=== PATIENT | female | born 1975 | race Caucasian/White ===

== ENCOUNTER 2020-10-16 08:37 | Outpatient (CLI) | payer MEDICARE, MEDICAID ==
[~2020-10-16] VITALS: Ht 170.2 cm; Wt 85.7 kg
[2020-10-16] MEDS ORDERED: albuterol 2.5 MG/3 ML nebule NEB ONE (09:25)
== END 2020-10-16 23:59 | disposition home or self-care (01) ==
LOC: RT 08:37
PROVIDERS: ATTEND Family Medicine
DX: R94.2 Abnormal results of pulmonary function studies (principal); F17.210 Nicotine dependence, cigarettes, uncomplicated
CPT/HCPCS: 94060; 94760

== ENCOUNTER 2025-10-10 13:35 | Outpatient (CLI) | payer MEDICARE, MEDICAID ==
--- NOTE | 2025-10-10 14:35 | RADIOLOGY REPORT ---
CT chest low-dose History: SCREEN FOR MALIGNANT NEOPLASM OF RESPIRATORY ORGANS TECHNIQUE: Images were obtained on the Siemens Sensation-16 CT Scanner then reformatted in coronal plane. FINDINGS:Lung olivas clear Heart and great vessels unremarkable. No enlargement of hilar or mediastinal lymph nodes. Mild degenerative changes in the thoracic spine. Images through upper abdomen unremarkable.. IMPRESSION: 1. No evidence of malignancy. No acute cardiopulmonary pathology Computed Tomographic Radiation Dosimetry Report: Total CTDI vol = 3.7 mGy Total DLP = 142 mGy-cm All CT scans at this medical facility are performed using dose modulation techniques as appropriate to a performed exam including the following: Automated exposure control was utilized; adjustment of the MA and/or KvP according to patient size; and use of iterative reconstruction technique.
== END 2025-10-10 23:59 | disposition home or self-care (01) ==
LOC: RAD 13:35
PROVIDERS: ATTEND Internal Medicine
DX: Z12.2 Encounter for screening for malignant neoplasm of respiratory organs (principal); M47.814 Spondylosis without myelopathy or radiculopathy, thoracic region; Z87.891 Personal history of nicotine dependence
CPT/HCPCS: 71271

== ENCOUNTER 2025-11-12 07:03 | Day surgery (SDC) | payer MEDICARE, MEDICAID ==
--- NOTE | 2025-11-09 11:51 | ELECTROCARDIOGRAPH REPORT ---
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 LADARIUS Townsend Measurements Intervals [place] Rate: 82 P: 79 NM: 130 QRS: 86 QRSD: 98 T: 47 QT: 354 QTc: 414 Interpretive Statements Sinus rhythm Electronically Signed On 11-09-2025 12:19:[address] LADARIUS Townsend Please click the below link to view image of tracing.
[2025-11-09 11:54] LABS: MEAN PLATELET VOLUME 8.2 FL (7.4-10.4); RED CELL DISTRIBUTION WIDTH 14.9 % (11.5-14.5)
[2025-11-09 12:09] LABS: CREATININE 0.56 MG/DL (0.40-0.90); TOTAL CARBON DIOXIDE 30.5 MMOL/L (24-32); eGFR > 90 ML/MIN
[2025-11-11] MEDS: DOCUMENT DATE & TIME OF BETA-BLOCKER PO ONE (20:00)
[2025-11-12] VITALS (8 sets, daily range): BP systolic 102–141; BP diastolic 71–102; PULSE 63–80; RESP 12–16; TEMP 97.5; O2SAT 95–99
[~2025-11-12] VITALS: Ht 170.2 cm; Wt 113.7 kg
[~2025-11-12 07:03] MED LIST: LOSA100T58 PO; METO-411 PO; ROSU10TA98 PO
[2025-11-12] MEDS ORDERED: ceFAZolin 2gm/dext,iso 50mL 50 ML IV ONE (07:37)
[2025-11-12] MEDS: ringers solution, lacted 1,000 ML IV SCH (07:46)
[2025-11-12] MEDS: albuterol 2.5 MG/3 ML nebule NEB ONE (08:00)
[2025-11-12] MEDS ORDERED: BUPIVAcaine/PF 2.5mg/ml (0.25%) 10ml vial ONE (08:28)
[2025-11-12] MEDS ORDERED: LIDOcaine 2% (20mg/ml) 5ml vial ONE ×2 (08:28→09:15)
[2025-11-12] MEDS ORDERED: midazolam 1 mg/ML 2ml injection ONE (08:56)
[2025-11-12] MEDS ORDERED: fentaNYL/PF 50MCG/1 ML 2ML syringe ONE (08:56)
[2025-11-12] MEDS: LIDOcaine 2% (20mg/ml) 5ml vial SQ ONE (09:04)
[2025-11-12] MEDS: BUPIVAcaine/PF 2.5mg/ml (0.25%) 10ml vial IJ ONE (09:04)
[2025-11-12] MEDS ORDERED: propofol inj 20 ML IV ONE (09:15)
--- NOTE | 2025-11-12 12:01 | OPERATIVE REPORT ---
Operative Report Providers to ~ Date of Procedure: Nov 12, 2025 Pre-Operative Diagnosis: Tunnel syndrome left wrist Post-Operative Diagnosis SAME as PRE-Op Procedure Performed Left wrist endoscopic carpal tunnel release Surgeon: Kwan Ramos MD Advertising Agent None Anesthesiologist: Stephen Hays Type of Anesthesia: Other Findings: Estimated Blood Loss: None Specimen Removed: None Description of Procedure: The patient is a 50-year-old woman with a carpal tunnel syndrome refractory to nonsurgical treatment. Surgery is indicated to relieve symptoms and paresthesias. Risks and benefits were discussed with the patient some of which include but are not limited to failure to improve, infection, bleeding, scar pain as well as nerve and vessel damage. We would proceed. Once in the operating room the arm was prepped and draped in usual manner and a time-out procedure was observed. Local anesthetic was infiltrated proximal to the volar wrist area. The tourniquet was elevated on the forearm. A 3 cm incision was made in the palm ulnar to the thenar crease in line with the radial side of the ring finger through skin and palmar fascia. Blunt dissection was done through the deeper tissues to the transverse carpal ligament which was then opened in line with the skin incision. The median nerve was identified and protected while the ligament was divided distally to the transverse arch and then proximally to the wrist crease followed by division of the forearm fascia. The nerve was decompressed this point and no lesions were noted in the carpal canal. The incision was irrigated and closed with a nylon suture. A sterile dressing was then applied. The tourniquet was released the hand perfused well and the patient was taken to the recovery room in stable condition KWAN RAMOS Jr., MD Nov 12, 2025 12:01
== END 2025-11-12 09:59 | disposition home or self-care (01) ==
LOC: PAS 07:03
PROVIDERS: ATTEND Orthopaedic Surgery Hand Surgery
DX: G56.03 Carpal tunnel syndrome, bilateral upper limbs (principal); E78.5 Hyperlipidemia, unspecified; E66.812 Obesity, class 2; J44.9 Chronic obstructive pulmonary disease, unspecified; I10 Essential (primary) hypertension; M47.22 Other spondylosis with radiculopathy, cervical region; M47.26 Other spondylosis with radiculopathy, lumbar region; R73.03 Prediabetes; R94.31 Abnormal electrocardiogram [ECG] [EKG]; Z90.710 Acquired absence of both cervix and uterus; Z90.89 Acquired absence of other organs; Z87.891 Personal history of nicotine dependence; Z88.8 Allergy status to other drugs, medicaments and biological substances; Z68.38 Body mass index [BMI] 38.0-38.9, adult; Z80.9 Family history of malignant neoplasm, unspecified; Z82.3 Family history of stroke
CPT/HCPCS: 29848; 36415; 80053; 82948; 85025; 93005; 94640; 94760; A4215; A6449; A7000; J2003; J2250; J2704; J3010; J3490; J7030; J7120; Z7506; Z7512; Z7610